=== PATIENT | male | born 1950 | race Caucasian/White ===

== ENCOUNTER 2024-01-02 11:50 | Emergency (ER) | payer MEDICARE, SELFPAY ==
[2024-01-02] VITALS (7 sets, daily range): BP systolic 140–144; BP diastolic 83–85; PULSE 69–80; RESP 18; TEMP 36.1; O2SAT 96–98; BMI 34.7
--- NOTE | 2024-01-02 12:15 | ED_ITS ---
HPI - Chest Pain General Chief Complaint: Chest Pain Stated Complaint: chest pain Time Seen by Provider: 01/02/24 12:01 History of Present Illness HPI narrative: This 73-year-old male comes in reporting some chest discomfort that occurred about an hour or 2 prior to arrival. He states that he was driving to still water and began to have some chest discomfort. He had similar chest discomfort about a week ago that came on without any exertional activity. He states that he did feel fatigued when doing a bit of shoveling yesterday but did not have any chest pain. He denies having any nausea, vomiting, lightheadedness, shortness of breath, or diaphoresis. Currently he is not having any discomfort. Related Data Home Medications Medication Instructions Recorded Confirmed Claritin-D 12 Hour 01/02/24 allopurinol 300 mg tablet 300 mg PO DAILY 01/02/24 01/02/24 betamethasone dipropionate 0.05 % topical BID PRN 01/02/24 topical ointment chlorthalidone 25 mg tablet 25 mg PO DAILY 01/02/24 01/02/24 esomeprazole magnesium 40 mg 40 mg PO DAILY 01/02/24 01/02/24 capsule,delayed release (Nexium) levothyroxine 100 mcg tablet 100 mcg PO QAM 01/02/24 01/02/24 losartan 01/02/24 potassium chloride 10 mEq 10 meq PO DAILY 01/02/24 01/02/24 tablet,extended release pravastatin 40 mg tablet 40 mg PO DAILY 01/02/24 01/02/24 sildenafil 50 mg tablet 50 mg PO DAILY PRN 01/02/24 01/02/24 triamcinolone acetonide 55 mcg 2 spray intranasal DAILY 01/02/24 01/02/24 nasal spray aerosol Allergies Allergy/AdvReac Type Severity Reaction Status Date / Time atorvastatin [From Lipitor] Allergy Verified 01/02/24 12:01 aspirin AdvReac Verified 01/02/24 12:01 Review of Systems Status of ROS Reports: 10 or more systems reviewed and unremarkable except as noted in History and below Narrative Constitutional: No fevers, no weight gain or loss. Eyes: No discharge. No vision changes. HENT: No congestion, no sore throat, no ear pain. Cardiovascular: No palpitations. Respiratory: No shortness of breath, no wheezes, no cough. Gastrointestinal: No abdominal pain, no vomiting, no diarrhea. Genitourinary: No dysuria, no hematuria. Musculoskeletal: Normal range of motion. Skin: No rashes, no pruritis. Neurological: No dizziness, weakness, sensory change, speech change. Endo/Heme/Allergies: No bruising or bleeding. No polydipsia. Pysch: no suicidality, no anxiety, no insomnia. All other systems reviewed and are negative. PFSH PFS Social History Smoking Status: Never smoker How often do you have a drink containing alcohol: never AUDIT-C Alcohol total score: 0 Non-prescribed substance use: denies use Exam Narrative Exam Narrative: Constitutional: Well-developed, well-nourished, no acute distress. HEENT: Normocephalic, atraumatic. Neck: Normal range of motion. Nontender. Supple. Heart: Regular. No murmurs. Normal rate. Intact distal pulses. Lungs: Clear to auscultation. No chest discomfort. No wheezes, rhonchi, or rales. Abdomen: Normal bowel sounds. Nontender. No rebound tenderness. Genitalia: Deferred. Back: No midline tenderness. Normal range of motion. Extremities: Normal range of motion. No injury. Skin: Intact. No rash. Warm. No erythema or pallor. Neurologic: No altered sensation. No weakness. Alert and oriented. Psychiatric: No suicidality. No anxiety or depression. No insomnia. Nursing notes and vitals signs are reviewed. Const Vital Signs, click to edit/add: Vital Signs - 24 hr 01/02/24 11:55 01/02/24 13:04 01/02/24 13:05 Temperature 97 F L Pulse Rate 72 80 Pulse Rate [Pulse Oximeter] 74 Respiratory Rate 18 Blood Pressure 143/84 H Blood Pressure [Left Upper Arm] 144/83 H Pulse Oximetry 97 97 98 Oxygen Delivery Method Room Air Course Vital Signs Vital signs: Initial Vital Signs Temperature 97 F L 01/02/24 11:55 Temperature Source Temporal Artery Scan 01/02/24 11:55 Pulse Rate 74 01/02/24 11:55 Respiratory Rate 18 01/02/24 11:55 Respiratory Effort Normal 01/02/24 11:55 Respiratory Depth Normal 01/02/24 11:55 Respiratory Pattern Normal 01/02/24 11:55 Blood Pressure 144/83 H 01/02/24 11:55 Blood Pressure Mean 103 01/02/24 11:55 Blood Pressure Position Supine 01/02/24 11:55 Pulse Oximetry 97 01/02/24 11:55 Oxygen Delivery Method Room Air 01/02/24 11:55 Vital Signs Temperature 97 F L 01/02/24 11:55 Pulse Rate 74 01/02/24 11:55 Respiratory Rate 18 01/02/24 11:55 Blood Pressure 144/83 H 01/02/24 11:55 Pulse Oximetry 97 01/02/24 11:55 Oxygen Delivery Method Room Air 01/02/24 11:55 Temperature 97 F L 01/02/24 11:55 Pulse Rate 80 01/02/24 13:05 Respiratory Rate 18 01/02/24 11:55 Blood Pressure 143/84 H 01/02/24 13:04 Pulse Oximetry 98 01/02/24 13:05 Oxygen Delivery Method Room Air 01/02/24 11:55 Medications Administered Medications: Discontinued Medications Generic Name Dose Route Start Last Admin Trade Name Kat PRN Reason Stop Dose Admin Aspirin 324 mg 01/02/24 12:29 01/02/24 12:35 Aspirin 81 Mg Tab.Chew PO 01/02/24 12:30 324 mg ONCE ONE Administration MDM - Chest Pain MDM Narrative Medical decision making narrative: This patient comes in reporting some chest discomfort that started while driving his vehicle. He had similar symptoms about 10 days ago that were not related to exertion. He does not report any exertional discomfort but did state that he was shoveling a bit yesterday and after 4 5 show [place] full[place] he felt more tired than he normally does but did not have chest pain or other symptoms. He states that he did have a stress echo a couple years ago. I recommended repeating this as his EKG and labs all returned with normal results today. The patient did receive a full-strength aspirin today. I advised him to take a baby aspirin daily and return if symptoms are worsening or recurrent. Lab Data Labs: Lab Results 01/02/24 01/02/24 Range/Units 12:22 12:30 WBC 8.31 (4.50-11.00) K/uL RBC 4.86 (4.30-5.90) m/uL Hgb 15.6 (13.5-17.5) gm/dL Hct 44.0 (37.0-53.0) % MCV 91 (80-100) fL MCH 32 (26-34) pg MCHC 36 (32-36) gm/dL RDW Coeff of Cyndi 13.0 (11.5-15.5) % Plt Count 250 (140-440) K/uL Neut % (Auto) 73.7 H (42.0-72.0) % Lymph % (Auto) 18.4 L (20-44) % Colbert % (Auto) 5.1 (0.0-11.0) % Eos % (Auto) 1.8 (0.0-7.0) % Baso % (Auto) 0.5 (0.0-3.0) % Neut # (Auto) 6.10 (1.7-7.0) K/uL Lymph # (Auto) 1.50 (0.90-2.90) K/uL Colbert # (Auto) 0.40 (0.00-0.90) K/UL Eos # (Auto) 0.15 (0.00-0.50) K/uL Baso # (Auto) 0.04 (0.00-0.30) K/uL Abs Immat Gran (auto) 0.04 (0.00-0.30) K/uL Imm/Tot Granulo (auto) 0.5 % Sodium 137 (135-149) mmol/L Potassium 3.6 (3.6-5.1) mmol/L Chloride 101 (96-114) mmol/L Carbon Dioxide 30 (20-32) mmol/L Anion Gap 6 L (7-15) mEq/L BUN 21 (7-30) mg/dL Creatinine 0.8 (0.5-1.5) mg/dL Estimated Creat Clear 64.60 Estimated GFR 94 ml/min Glucose 156 H (60-115) mg/dL Calcium 9.6 (8.4-10.6) mg/dL POC Troponin I 0.00 L (0.01-0.04) ng/ml ECG Data Attestation: I personally reviewed and interpreted this ECG as follows: Interpretation: Normal sinus rhythm. Rate is 78 beats per minute. There are no ST or T-wave abnormalities. Discharge Plan Discharge Prescriptions: No Action chlorthalidone 25 mg tablet 25 mg PO DAILY allopurinol 300 mg tablet 300 mg PO DAILY betamethasone dipropionate 0.05 % ointment topical BID PRN esomeprazole magnesium [Nexium] 40 mg capsule,delayed release(DR/EC) 40 mg PO DAILY levothyroxine 100 mcg tablet 100 mcg PO QAM Claritin-D 12 Hour losartan sildenafil 50 mg tablet 50 mg PO DAILY PRN pravastatin 40 mg tablet 40 mg PO DAILY potassium chloride 10 mEq tablet extended release 10 meq PO DAILY triamcinolone acetonide 55 mcg aerosol,spray 2 spray INTRANASAL DAILY Follow Up/Referrals: Compa Nichols MD [Primary Care Provider] -
[2024-01-02] MEDS: ASPIRIN 81 MG TAB.CHEW 324 MG PO (12:35)
[2024-01-02 12:43] LABS: Basophils Absolute Auto 0.04 K/uL (0.00-0.30); Basophils Percent Auto 0.5 % (0.0-3.0); Eosinophils Absolute Auto 0.15 K/uL (0.00-0.50); Eosinophils Percent Auto 1.8 % (0.0-7.0); Hemoglobin* 15.6 gm/dL (13.5-17.5); Immature Granulocytes Abs Auto 0.04 K/uL (0.00-0.30); Immature Granulocytes Pct Auto 0.5 %; Lymphocytes Percent Auto 18.4 % (20-44); Mean Corpuscular HGB Conc 36 gm/dL (32-36); Mean Corpuscular Hemoglobin 32 pg (26-34); Mean Corpuscular Volume 91 fL (80-100); Monocytes Percent Auto 5.1 % (0.0-11.0); Neutrophils Percent Auto 73.7 % (42.0-72.0); Platelet Count* 250 K/uL (140-440); Red Blood Count 4.86 m/uL (4.30-5.90); White Blood Count* 8.31 K/uL (4.50-11.00)
[2024-01-02 12:55] LABS: Chloride* 101 mmol/L (96-114); Potassium* 3.6 mmol/L (3.6-5.1); Sodium* 137 mmol/L (135-149)
[2024-01-02 12:56] LABS: Slide Review Reflex No
[2024-01-02 12:58] LABS: Anion Gap 6 mEq/L (7-15); Blood Urea Nitrogen* 21 mg/dL (7-30); Carbon Dioxide* 30 mmol/L (20-32); Creatinine* 0.8 mg/dL (0.5-1.5); Estimated Glomerular Filt Rate 94 ml/min; Glucose* 156 mg/dL (60-115)
[2024-01-02 12:59] LABS: Calcium* 9.6 mg/dL (8.4-10.6)
== END 2024-01-02 14:21 | disposition home or self-care (01) ==
PROVIDERS: Emergency Provider Emergency Medicine Emergency Medical Services; PCP Surgery
DX: R07.9 Chest pain, unspecified (principal)
CPT/HCPCS: 36415; 80048; 84484; 85025; 99283; 99284; A9270

== ENCOUNTER 2024-01-27 14:41 | Outpatient (CLI) | payer MEDICARE, SELFPAY ==
[2024-01-27 15:42] VITALS: BP 138/84; PULSE 109
--- NOTE | 2024-01-27 15:46 | W.PM.STED ---
Stress Test Note Date Date of test: 01/27/24 Providers Referring provider: Minesh Villarreal Primary care provider: Compa Nichols Stress test physician: Ander Giraldo Stress Test Note Stress test ordered: Stress Echo Indication for test: Chest pain Results discussion: Patient is a very nice gentleman who presents here for the above test, discussion the risks benefits and side effects are undertaken with the gentleman he like to proceed. Cardiac stress test medical history form is to pretest EKG shows a ventricular rate of 105 and a blood pressure 125/85. There is some ST wave the abnormalities with flipped T-waves in aVL. This appears to be chronic. Blood pressure is elevated 125/85 standard Adarsh protocol is employed over a time course of 6 minutes, achieved a metabolic equivalent of 7.1 Mets with a maximum heart rate of 146, this is 115% of the target. Test is terminated, cause of fatigue he did not develop any chest pain or shortness of breath or any anginal equivalent symptoms. Review of the EKG did not show any ST wave changes suggestive ischemia, there is no a arrhythmias. Conditioning was felt to be good Impression: Negative electrographic tracing of stress echo. Objectively and subjectively negative Follow up suggested: Follow-up with primary care, and clinical correlation with the echo results is suggested. Patient left this testing facility in good condition.
== END 2024-01-27 14:42 | disposition home or self-care (01) ==
LOC: STRESS 14:42
PROVIDERS: PCP Surgery; Visit Provider Family Medicine
DX: R07.89 Other chest pain (principal)
CPT/HCPCS: 93016; 93325; 93351

== ENCOUNTER 2025-03-29 07:46 | Outpatient (CLI) | payer MEDICARE, SELFPAY ==
--- NOTE | 2025-03-29 08:15 | CRLHL7_ITS ---
For Patients: As a result of the Century Cures Act, medical imaging exams and procedure reports are released immediately into your electronic medical record. You may view this report before your referring provider. If you have questions, please contact your health care provider. INDICATION : Left thyroid nodule. TECHNIQUE : Ultrasound-guided fine needle aspiration of thyroid nodule. COMPARISON : 03/07/2025 FINDINGS : PROCEDURE: After the informed consent and time-out, multiple fine needle aspirations were obtained from the thyroid nodule. Fine needle performed. 25 gauge needles were used. 6 passes. Lidocaine was used for local anesthesia. The preliminary cytology was adequate for interpretation. Real-time imaging was used for guidance and needle placement. Post imaging ultrasound demonstrates no immediate complication. IMPRESSION : Successful fine needle aspiration left thyroid lobe nodule. Dictated by Claude Watson MD @ 03/29/2025 9:42:08 AM (Electronically Signed)
== END 2025-03-29 07:47 | disposition home or self-care (01) ==
LOC: US 07:48
PROVIDERS: PCP Surgery; Visit Provider Surgery
DX: E04.1 Nontoxic single thyroid nodule (principal)
CPT/HCPCS: 10005; 76942; 88173